=== PATIENT | male | born 1995 | race Caucasian/White ===

== ENCOUNTER 2019-04-06 09:10 | Emergency (ER) | payer OTHER ==
[~2019-04-06] VITALS: Ht 177.8 cm; Wt 64.0 kg
[2019-04-06] MEDS ORDERED: HYDROCODONE/ACETAMINOPHEN 5/325MG TABLET PO ONE (10:30)
[2019-04-06] MEDS ORDERED: IBUPROFEN 600MG TABLET PO ONE (14:15)
[2019-04-06 14:48] VITALS: BP 116/89
== END 2019-04-06 14:51 | disposition home or self-care (01) ==
LOC: ER 09:17
DX: M79.642 Pain in left hand (principal); F12.10 Cannabis abuse, uncomplicated; V19.9XXA Pedal cyclist (driver) (passenger) injured in unspecified traffic accident, initial encounter; Y93.89 Activity, other specified; Y92.89 Other specified places as the place of occurrence of the external cause; Y99.8 Other external cause status
CPT/HCPCS: 29125; 71101; 73090; 73110; 73130; 76705; 99284